=== PATIENT | female | born 1990 | race Caucasian/White ===

== ENCOUNTER 2022-01-08 01:29 | Emergency (ER) | payer MEDICAID ==
[~2022-01-08] VITALS: Ht 162.6 cm; Wt 70.0 kg
[2022-01-08] MEDS ORDERED: ALBU90AE INH (03:18)
[2022-01-08] MEDS ORDERED: IBUP-2028 MT (03:18)
[2022-01-08] MEDS ORDERED: IBUPROFEN 400MG TABLET PO ONE (03:30)
[2022-01-08 03:43] VITALS: BP 125/78
== END 2022-01-08 03:30 | disposition home or self-care (01) ==
LOC: ER 01:29
DX: M54.89 Other dorsalgia (principal); J06.9 Acute upper respiratory infection, unspecified; M54.2 Cervicalgia; V43.92XA Unspecified car occupant injured in collision with other type car in traffic accident, initial encounter; Y93.89 Activity, other specified; Y92.488 Other paved roadways as the place of occurrence of the external cause
CPT/HCPCS: 81025; 99282

== ENCOUNTER 2022-05-13 17:55 | Emergency (ER) | payer MEDICAID ==
[~2022-05-13] VITALS: Ht 160 cm; Wt 69.0 kg
[~2022-05-13 17:55] MED LIST: ALBU90AE INH; IBUP-2028 MT
[2022-05-13 18:23] VITALS: BP 111/53
[2022-05-13 19:35] LABS: CLARITY URINE CLEAR (CLEAR); COLOR URINE YELLOW (YELLOW); KETONES URINE NEGATIVE (NEGATIVE); LEUKOCYTE ESTERASE URINE NEGATIVE (NEGATIVE); NITRITE URINE NEGATIVE (NEGATIVE); OCCULT BLOOD URINE NEGATIVE (NEGATIVE); PROTEIN URINE NEGATIVE (NEGATIVE); SPECIFIC GRAVITY URINE 1.014 (1.005-1.030); UROBILINOGEN URINE 0.2 E.U./dL (0.2-1.0)
[2022-05-13] MEDS ORDERED: CEFTRIAXONE SODIUM 500 MG/VIAL IM ONE (20:30)
[2022-05-13] MEDS ORDERED: LIDOCAINE HCL 1% 20ML VIAL (Pyxis) INJ INFIL ONE (20:30)
[2022-05-13] MEDS ORDERED: NITR-87 MT (21:16)
[2022-05-13] MEDS ORDERED: IBUP-2028 MT (21:16)
[2022-05-13] MEDS ORDERED: DOXY100T2 MT (21:16)
== END 2022-05-13 21:34 | disposition home or self-care (01) ==
LOC: ER 17:55
DX: R30.0 Dysuria (principal); Z79.899 Other long term (current) drug therapy
CPT/HCPCS: 81003; 81025; 87086; 87491; 87591; 96372; 99283; J0696

== ENCOUNTER 2022-12-20 15:40 | Emergency (ER) | payer MEDICAID ==
[~2022-12-20] VITALS: Ht 162.6 cm; Wt 76.0 kg
[~2022-12-20 15:40] MED LIST changes: +DOXY100T2 MT; +NITR-87 MT
[2022-12-20 16:01] VITALS: BP 116/63; PULSE 65; RESP 18; TEMP 98.7; O2SAT 99
[2022-12-20 16:41] LABS: BASOPHILS % 0.6 % (0.0-2.0); HEMATOCRIT. 35.9 % (36.0-48.0); HEMOGLOBIN. 12.1 g/dL (12.0-16.0); LYMPHOCYTES % 32.6 % (20.0-50.0); MEAN CORPUSCULAR HEMOGLOBIN 32.4 pg (28.0-32.0); MEAN CORPUSCULAR HGB CONC 33.8 g/dL (31.0-37.0); MEAN CORPUSCULAR VOLUME 95.8 fL (81.0-99.0); MEAN PLATELET VOLUME 8.5 fl (7.4-10.4); MONOCYTES % 6.7 % (2.0-8.0); NEUTROPHILS % 56.1 % (40.0-76.0); PLATELET 265 x1000/uL (130-400); RED BLOOD CELL COUNT 3.74 mill/uL (4.2-5.4); RED CELL DISTRIBUTION WIDTH 14.3 % (11.6-14.6); WHITE BLOOD COUNT 6.3 x1000/uL (4.5-11.0)
[2022-12-20 16:45] LABS: CHLORIDE 109 mEq/L (98-107); INDEX HEMOLYSI 1 (1-3); INDEX ICTERIC 1 (1-4); INDEX LIPEMIC 1 (1-3); POTASSIUM 3.4 mEq/L (3.5-5.1); SODIUM 138 mEq/L (136-145)
[2022-12-20 16:45] LABS: CLARITY URINE CLOUDY (CLEAR); COLOR URINE YELLOW (YELLOW); GLUCOSE URINE NEGATIVE (NEGATIVE); KETONES URINE 2+ (NEGATIVE); LEUKOCYTE ESTERASE URINE 1+ (NEGATIVE); NITRITE URINE NEGATIVE (NEGATIVE); OCCULT BLOOD URINE 3+ (NEGATIVE); PH URINE 6.5 (4.5-8.0); PROTEIN URINE 1+ (NEGATIVE); SPECIFIC GRAVITY URINE 1.027 (1.005-1.030)
[2022-12-20 17:01] LABS: ALANINE AMINOTRANSFERASE 34 IU/L (13-61); ASPARTATE AMINOTRANSFERASE 15 IU/L (15-37); BILIRUBIN TOTAL 0.3 mg/dL (0.1-1.0); CALCIUM 8.5 mg/dL (8.5-10.1); CARBON DIOXIDE 22 mEq/L (21-32); CREATININE 0.5 mg/dL (0.6-1.3); GLUCOSE 97 mg/dL (70-105); PROTEIN TOTAL 7.5 g/dL (6.0-8.3); UREA NITROGEN BLOOD 8 mg/dL (7-21)
[2022-12-20 17:44] LABS: BACTERIA URINE 3+; SQUAMOUS EPITHELIAL CELL URINE 2+ /lpf (RARE/1+)
[2022-12-20] MEDS ORDERED: CEPH500C2 MT (19:49)
[2022-12-20] MEDS ORDERED: AZITHROMYCIN 500 MG TABLET PO ONE (20:00)
[2022-12-20] MEDS ORDERED: CEFTRIAXONE SODIUM 500 MG/VIAL IM ONE (20:00)
== END 2022-12-20 20:12 | disposition home or self-care (01) ==
LOC: ER 15:40
DX: N39.0 Urinary tract infection, site not specified (principal)
CPT/HCPCS: 36415; 80053; 81003; 81025; 85025; 86850; 86900; 99283

== ENCOUNTER 2023-01-09 15:11 | Emergency (ER) | payer MEDICAID ==
[~2023-01-09] VITALS: Ht 162.6 cm; Wt 75.0 kg
[~2023-01-09 15:11] MED LIST changes: +CEPH500C2 MT
[2023-01-09 15:47] VITALS: BP 110/68; PULSE 92; RESP 18; TEMP 99.4; O2SAT 99
== END 2023-01-09 18:22 | disposition home or self-care (01) ==
LOC: ER 15:11
DX: U07.1 COVID-19 (principal)
CPT/HCPCS: 99283; 87426; C9803